=== PATIENT | male | born 1985 | race Caucasian/White ===

== ENCOUNTER 2016-02-18 22:41 | Emergency (ER) | payer SELFPAY ==
[~2016-02-18] VITALS: Ht 180.3 cm; Wt 69.2 kg
[~2016-02-18 22:41] MED LIST: NAPR550 PO; Z.0.NO CURRENT MEDS
[2016-02-18 23:00] VITALS: BP 142/93; PULSE 66; RESP 18; O2SAT 100
[2016-02-18 23:46] VITALS: BP 132/89; PULSE 63; RESP 18; TEMP 97.8; O2SAT 98
[2016-02-18 23:50] VITALS: RESP 18; O2SAT 100
[2016-02-18] MEDS ORDERED: SODIUM CHLOR 0.9% 1000 ML INJ 1,000 ML IV SCH (23:58)
[2016-02-19] MEDS ORDERED: diphenhydrAMINE HCL 50 MG/ML VIAL IVP ONE
[2016-02-19] MEDS ORDERED: FAMOTIDINE 20 MG/2 ML VIAL IV PUSH ONE
[2016-02-19] MEDS ORDERED: predniSONE 20 MG TAB PO ONE
[2016-02-19] MEDS ORDERED: SODIUM CHLORIDE 0.9% FLUSH 5 ML FLUSH IVF PRN
[2016-02-19 00:45] VITALS: BP 137/91; PULSE 60; RESP 18; O2SAT 98
[2016-02-19 00:55] LABS: AUTOMATED NEUTROPHIL # 6.3 TH/MM3 (1.8-7.7); BASOPHIL # 0.1 TH/MM3 (0-0.2); BASOPHIL % 1.1 % (0.0-2.0); EOSINOPHIL # 0.9 TH/MM3 (0-0.4); EOSINOPHIL % 8.5 % (0.0-4.0); HEMATOCRIT 50.8 % (39.0-51.0); LYMPH % 23.7 % (9.0-44.0); LYMPHOCYTE # 2.4 TH/MM3 (1.0-4.8); MEAN CELL VOLUME 88.2 FL (80.0-100.0); MEAN CORPUSCULAR HEMOGLOBIN 30.1 PG (27.0-34.0); MEAN CORPUSCULAR HGB CONC 34.1 % (32.0-36.0); MONO % 3.8 % (0.0-8.0); NEUT % 62.9 % (16.0-70.0); PLATELET COUNT 194 TH/MM3 (150-450); RED BLOOD COUNT 5.76 MIL/MM3 (4.50-5.90); RED CELL DISTRIBUTION WIDTH 11.6 % (11.6-17.2); WHITE BLOOD COUNT 10.1 TH/MM3 (4.0-11.0)
[2016-02-19 00:57] LABS: POTASSIUM 3.8 MEQ/L (3.5-5.1)
[2016-02-19 00:59] LABS: BICARBONATE 28.5 MEQ/L (21.0-32.0)
[2016-02-19 01:04] LABS: HEMO FLAGS DIFF FINAL
[2016-02-19] MEDS ORDERED: PRED20 PO (01:22)
--- NOTE | 2016-02-19 01:23 | PD ---
HPI Chief Complaint: Allergic/Adverse Reaction Time Seen by Provider: 23:48 Travel History International Travel<30 days: No Contact w/Intl Traveler<30days: No Traveled to known affect area: No History of Present Illness HPI Patient is a 30 year old male who presents to the ER with his for evaluation of URI symptoms. Patient states that he was vacuuming yesterday in an inclosed space and suddenly had itchy, watery eyes, rash on face and some heaviness on his chest. Took a benadryl [employer] with some relief of symptoms but they have been fairly constant since yesterday. Denies SOB or choking sensation. PFSH Past Medical History Medical History: Denies Significant Hx Diminished Hearing: No Immunizations Current: Yes Tetanus Vaccination: Unknown Influenza Vaccination: No Past Surgical History Surgical History: No Previous Surgery Social History Alcohol Use: Yes () Tobacco Use: No (QUIT 2008) Substance Use: No Allergies-Medications (Allergen,Severity, Reaction): Uncoded Allergies: BRAZILLIAN PEPPER TREE (Allergy, Severe, SOB, 04/01/15) . NICKEL-PLATING (Allergy, Severe, RASH, 04/01/15) . Reported Meds & Prescriptions Reported Meds & Active Scripts Active Prednisone 20 Mg Tab 60 Mg PO DAILY 4 Days Review of Systems Except as stated in HPI: all other systems reviewed are Neg Physical Exam Narrative GENERAL: WD.WN in nad. SKIN: Warm and dry. Flushed face particularly around the nasal bridge. No rash to chest, back, arms, legs, abdomen. HEAD: Atraumatic. Normocephalic. EYES: Pupils equal and round. No scleral icterus. No injection or drainage. ENT: No nasal bleeding or discharge. Mucous membranes pink and moist. No swelling of the oropharynx, nasopharynx, ears. TM's clear, oropharynx clear and patent. NECK: Trachea midline. No JVD. CARDIOVASCULAR: Regular rate and rhythm. RESPIRATORY: No accessory muscle use. Clear to auscultation. Breath sounds equal bilaterally. GASTROINTESTINAL: Abdomen soft, non-tender, nondistended. Hepatic and splenic margins not palpable. MUSCULOSKELETAL: Extremities without clubbing, cyanosis, or edema. No obvious deformities. NEUROLOGICAL: Awake and alert. No obvious cranial nerve deficits. Motor grossly within normal limits. Five out of 5 muscle strength in the arms and legs. Normal speech. PSYCHIATRIC: Appropriate mood and affect; insight and judgment normal. Data Data Last Documented VS Vital Signs Date Time Temp Pulse Resp B/P Pulse Ox O2 Delivery O2 Flow Rate FiO2 02/19/16 01:30 65 18 124/80 98 Room Air 02/18/16 23:46 97.8 Orders Basic Metabolic Panel (Bmp) (02/18/16 23:58) Complete Blood Count With Diff (02/18/16 23:58) Ecg Monitoring (02/18/16 23:58) Iv Access Insert/Monitor (02/18/16 23:58) Oximetry (02/18/16 23:58) Diphenhydramine Inj (Benadryl Inj) (02/19/16 00:00) Prednisone (Deltasone) (02/19/16 00:00) Famotidine Inj (Pepcid Inj) (02/19/16 00:00) Sodium Chlor 0.9% 1000 Ml Inj (Ns 1000 M (02/18/16 23:58) Sodium Chloride 0.9% Flush (Ns Flush) (02/19/16 00:00) Labs Laboratory Tests Test 02/19/16 00:20 White Blood Count 10.1 TH/MM3 Red Blood Count 5.76 MIL/MM3 Hemoglobin 17.3 GM/DL Hematocrit 50.8 % Mean Corpuscular Volume 88.2 FL Mean Corpuscular Hemoglobin 30.1 PG Mean Corpuscular Hemoglobin 34.1 % Concent Red Cell Distribution Width 11.6 % Platelet Count 194 TH/MM3 Mean Platelet Volume 9.3 FL Neutrophils (%) (Auto) 62.9 % Lymphocytes (%) (Auto) 23.7 % Monocytes (%) (Auto) 3.8 % Eosinophils (%) (Auto) 8.5 % Basophils (%) (Auto) 1.1 % Neutrophils # (Auto) 6.3 TH/MM3 Lymphocytes # (Auto) 2.4 TH/MM3 Monocytes # (Auto) 0.4 TH/MM3 Eosinophils # (Auto) 0.9 TH/MM3 Basophils # (Auto) 0.1 TH/MM3 CBC Comment DIFF FINAL Differential Comment Sodium Level 141 MEQ/L Potassium Level 3.8 MEQ/L Chloride Level 102 MEQ/L Carbon Dioxide Level 28.5 MEQ/L Anion Gap 11 MEQ/L Blood Urea Nitrogen 11 MG/DL Creatinine 1.00 MG/DL Estimat Glomerular Filtration 89 ML/MIN Rate Random Glucose 98 MG/DL Calcium Level 9.1 MG/DL MDM Medical Decision Making Medical Screen Exam Complete: Yes Emergency Medical Condition: Yes Differential Diagnosis Allergic rhinitis, allergic reaction, anaphylaxis unlikely. Narrative Course Roomed in ER, responding to meds given. Feeling much better. Heaviness on chest resolved. Erythema around nose improving. Eosinophilia present suggestive of allergic reaction but his symptoms are mild. Stable for discharge. Discussed symptomatic management and return to ED criteria. Diagnosis Primary Impression: Allergic reaction Qualified Code: T78.40XA - Allergic reaction, initial encounter Med/Other Pt SpecificInfo: Prescription(s) given Scripts Prednisone 20 Mg Tab60 Mg PO DAILY 4 Days Ref 0 Prov:Sunil Pierce MD 02/19/16 Disposition: 01 DISCHARGE HOME Condition: Stable Sunil Pierce MD Feb 19, 2016 01:23
[2016-02-19 01:30] VITALS: BP 124/80; PULSE 65; RESP 18; O2SAT 98
== END 2016-02-19 01:46 | disposition home or self-care (01) ==
LOC: PHED 22:41
DX: T78.40XA Allergy, unspecified, initial encounter (principal); R07.89 Other chest pain; R21 Rash and other nonspecific skin eruption; D72.1 Eosinophilia; Z87.891 Personal history of nicotine dependence
CPT/HCPCS: 80048; 85025; 96361; 96374; 96375; 99283; J1200; J7030; J7512